=== PATIENT | female | born 1980 | race Caucasian/White ===

== ENCOUNTER 2017-01-18 12:38 | Emergency (ER) | payer BC ==
[2017-01-18 14:01] VITALS: BP 115/83
--- NOTE | 2017-01-18 14:43 | UC ---
Eye Complaint HPI - HPI Summary HPI Summary: 36 YO FEMALE WITH LEFT LOWER LID PAIN/SWELLING X DAYS LOOKS BETTER TODAY THAN YESTERDAY SOME MATTER ON LASHES THIS AM NO VISUAL C/O NO EYE PAIN - History of Current Complaint Chief Complaint: UCSkin Stated Complaint: LEFT EYE COMPLAINT Time Seen by Provider: 01/18/17 14:22 Hx Obtained From: Patient Hx Last Menstrual Period: 2 weeks ago Onset/Duration: Gradual Onset, Lasting Days Timing: Constant Severity Initially: Mild Severity Currently: Mild Pain Intensity: 4 Pain Scale Used: 0-10 Numeric Location of Injury: Eye Lid (lower) Character: Dull Aggravating Factor(s): Other - TOUCH Alleviating Factor(s): Other - WARM COMPRESSES Associated Signs And Symptoms: Positive: Drainage (Purulent) Related History: Other - HAS HAD STYS - Risk Factors Penetrating Injury Risk Factor: Negative Globe Rupture Risk Factors: Negative Acute Glaucoma Risk Factors: Negative - Allergies/Home Medications Allergies/Adverse Reactions: Allergies Allergy/AdvReac Type Severity Reaction Status Date / Time Penicillins Allergy Unknown Unknown Verified 01/18/17 14:01 Reaction Details PMH/Surg Hx/FS Hx/Imm Hx Previously Healthy: Yes - Surgical History Surgical History: Yes Surgery Procedure, Year, and Place: 2 C SECTIONS - Family History Known Family History: Positive: Hypertension - Social History Alcohol Use: Occasionally Substance Use Type: None Smoking Status (MU): Former Smoker When Did the Patient Quit Smoking/Using Tobacco: 2012 Review of Systems Constitutional: Negative Skin: Negative Eyes: Drainage ENT: Negative Respiratory: Negative Cardiovascular: Negative Gastrointestinal: Negative Genitourinary: Negative Motor: Negative Neurovascular: Negative Musculoskeletal: Negative Neurological: Negative Psychological: Negative All Other Systems Reviewed And Are Negative: Yes Physical Exam Triage Information Reviewed: Yes Vital Signs: Initial Vital Signs Temp 98.5 F 01/18/17 13:56 Pulse 77 01/18/17 13:56 Resp 20 01/18/17 13:56 BP 115/83 01/18/17 13:56 Eyes: Positive: Conjunctiva Clear, Other: - SEE IMAGE ENT: Positive: Hearing grossly normal. Negative: Nasal congestion, Nasal drainage, Trismus, Muffled/hoarse voice Neck: Positive: Supple, Nontender Respiratory: Positive: Lungs clear, Normal breath sounds, No respiratory distress Cardiovascular: Positive: RRR, No Murmur Musculoskeletal: Positive: ROM Intact, No Edema Neurological Exam: Normal Neurological: Positive: Alert Psychological Exam: Normal Skin Exam: Normal Eye Complaint Course/Dx - Differential Dx/Diagnosis Provider Diagnoses: LEFT DACROCYSTITIS Discharge - Discharge Plan Condition: Stable Disposition: HOME Prescriptions: Cephalexin CAP* [Keflex CAP*] 500 mg PO QID #28 cap Erythromycin OPHTH.OINT* [Ilotycin OPHTH.OINT*] 1 applic LEFT EYE QID #1 ophth.oint Referrals: Kristal Koenig MD [Primary Care Provider] - If Needed Additional Instructions: you have DACROCYSTITIS WARM COMPRESSES AT LEAST 4X DAY RECHECK IN 2-3 DAYS IF NOT BETTER Images Head: 1 - RED/SWOLLEN, NO FB INTEAR DUCT VISUALIZED
== END 2017-01-18 14:44 | disposition home or self-care (01) ==
LOC: UCCORT 12:38
DX: H04.322 Acute dacryocystitis of left lacrimal passage (principal); Z88.0 Allergy status to penicillin; Z87.891 Personal history of nicotine dependence
CPT/HCPCS: 99212; G0463

== ENCOUNTER 2017-03-16 15:14 | Emergency (ER) | payer BC ==
--- NOTE | 2017-03-16 16:43 | UC ---
Eye Complaint HPI - HPI Summary HPI Summary: 37 yo F with recurrence of left eye redness, swelling and drainage x 3 days. Was Rx'd here in January by Dr. Wyman with cephalexin and e'mycin eye ointment. Pt admits she did not finish the cephalexin (9 pills left). She restarted the meds last pm. - History of Current Complaint Chief Complaint: UCEye Stated Complaint: CLOGGED TEAR DUCT Time Seen by Provider: 03/16/17 16:42 Hx Obtained From: Patient Hx Last Menstrual Period: 02/25/17 Onset/Duration: Gradual Onset, Lasting Hours, Still Present Timing: Constant Severity Initially: Moderate Severity Currently: Moderate Pain Intensity: 6 Pain Scale Used: 0-10 Numeric Location of Injury: Eye Lid (lower) - medial Character: Foreign Body Sensation - like sand Aggravating Factor(s): Nothing Alleviating Factor(s): Nothing Associated Signs And Symptoms: Positive: Drainage (Clear), Swelling - lower lid , redness. Negative: Fever Related History: Similar Episode - "plugged tear duct" - Allergies/Home Medications Allergies/Adverse Reactions: Allergies Allergy/AdvReac Type Severity Reaction Status Date / Time Penicillins Allergy Unknown Unknown Verified 03/16/17 16:42 Reaction Details PMH/Surg Hx/FS Hx/Imm Hx Previously Healthy: Yes - Surgical History Surgical History: Yes Surgery Procedure, Year, and Place: 2 C SECTIONS - Family History Known Family History: Positive: Hypertension - Social History Occupation: Employed Full-time Lives: With Family Alcohol Use: Occasionally Substance Use Type: None Smoking Status (MU): Former Smoker When Did the Patient Quit Smoking/Using Tobacco: 2011 - Immunization History Most Recent Influenza Vaccination: none Review of Systems Constitutional: Negative Skin: Other - redness left lower lid Eyes: Drainage, Other - lower lid redness and swelling ENT: Negative Respiratory: Negative Cardiovascular: Negative Gastrointestinal: Negative Genitourinary: Negative Motor: Negative Neurovascular: Negative Musculoskeletal: Negative Neurological: Negative Psychological: Negative All Other Systems Reviewed And Are Negative: Yes Physical Exam Triage Information Reviewed: Yes Appearance: Well-Appearing, Well-Nourished, Pain Distress Vital Signs: Initial Vital Signs Temp 98.2 F 03/16/17 16:36 Pulse 67 03/16/17 16:36 Resp 16 03/16/17 16:36 BP 123/93 03/16/17 16:36 Pulse Ox 100 04/28/17 16:36 Vital Signs Reviewed: Yes Eyes: Positive: Conjunctiva Clear, Other: - red lower lid medial third ENT: Positive: Normal ENT inspection Neck: Positive: Supple, Nontender Respiratory: Positive: No respiratory distress Cardiovascular: Positive: RRR, Pulses Normal, Brisk Capillary Refill Musculoskeletal: Positive: Strength Intact, ROM Intact Neurological: Positive: Alert, Muscle Tone Normal Psychological Exam: Normal Skin: Positive: significant lesion(s) - left eye lower lid Eye Complaint Course/Dx - Course Course Of Treatment: advised pt to finish all meds and to use only the new ointment for a full 10 days. Advised to throw out all eye makeup. - Differential Dx/Diagnosis Differential Diagnosis/HQI/PQRI: Conjunctivitis, Periorbital Cellulitis, Other - stye Provider Diagnoses: stye left eye. elevated BP due to pain without dx HTN Discharge - Discharge Plan Condition: Stable Disposition: HOME Prescriptions: Cephalexin CAP* [Keflex 500 CAP*] 500 mg PO QID #28 cap Erythromycin OPHTH.OINT* [Ilotycin OPHTH.OINT*] 1 applic LEFT EYE QID #1 ophth.oint Patient Education Materials: St (ED) Referrals: Kristal Koenig MD [Primary Care Provider] - Inocencio Cui MD [Medical Doctor] - 3 Days (if not improvement )
[2017-03-16 16:58] VITALS: BP 123/93
== END 2017-03-16 17:02 | disposition home or self-care (01) ==
LOC: UCCORT 15:14
DX: H00.015 Hordeolum externum left lower eyelid (principal); R03.0 Elevated blood-pressure reading, without diagnosis of hypertension; Z88.0 Allergy status to penicillin; Z87.891 Personal history of nicotine dependence
CPT/HCPCS: 99212; G0463

== ENCOUNTER 2017-09-30 13:55 | Emergency (ER) | payer BC ==
[2017-09-30 15:59] VITALS: BP 127/85
--- NOTE | 2017-09-30 16:27 | UC ---
Throat Pain/Nasal Oliver HPI - HPI Summary HPI Summary: Pt c/o nasal congestion, sinus pressure,cough and generalized malaise X 3-4 days. Has history of sinus infections.Pt is traveling to [facility] in two days. - History of Current Complaint Chief Complaint: UCGeneralIllness Stated Complaint: RESPITORY Time Seen by Provider: 09/30/17 15:55 Hx Obtained From: Patient Hx Last Menstrual Period: 09/09/17 ?: No Onset/Duration: Gradual Onset, Lasting Days, Worse Since - onset Severity: Moderate Cough: Nonproductive Associated Signs & Symptoms: Positive: Sinus Discomfort - Epiglottits Risk Factors Epiglottis Risk Factors: Negative - Allergies/Home Medications Allergies/Adverse Reactions: Allergies Allergy/AdvReac Type Severity Reaction Status Date / Time Penicillins Allergy Unknown Unknown Verified 09/30/17 15:59 Reaction Details PMH/Surg Hx/FS Hx/Imm Hx Previously Healthy: Yes - Surgical History Surgical History: Yes Surgery Procedure, Year, and Place: 2 C SECTIONS - Family History Known Family History: Positive: Hypertension - Social History Occupation: Employed Full-time Lives: With Family Alcohol Use: Occasionally Substance Use Type: None Smoking Status (MU): Former Smoker Have You Smoked in the Last Year: No When Did the Patient Quit Smoking/Using Tobacco: 2011 - Immunization History Most Recent Influenza Vaccination: none Vaccination Up to Date: Yes Review of Systems Constitutional: Fatigue Skin: Negative Eyes: Negative ENT: Sinus Congestion, Sinus Pain/Tenderness Respiratory: Cough Cardiovascular: Negative Gastrointestinal: Negative Genitourinary: Negative Motor: Negative Neurovascular: Negative Musculoskeletal: Negative Neurological: Headache Psychological: Negative Is Patient Immunocompromised?: No All Other Systems Reviewed And Are Negative: Yes Physical Exam Triage Information Reviewed: Yes Appearance: Ill-Appearing Vital Signs: Initial Vital Signs Temp 98.3 F 09/30/17 15:54 Pulse 101 09/30/17 15:54 Resp 16 09/30/17 15:54 BP 127/85 09/30/17 15:54 Pulse Ox 97 09/30/17 15:54 Vital Signs Reviewed: Yes Eye Exam: Normal ENT Exam: Other ENT: Positive: Nasal congestion, TM bulging, Sinus tenderness Dental Exam: Normal Neck exam: Normal Respiratory Exam: Normal Cardiovascular Exam: Normal Musculoskeletal Exam: Normal Neurological Exam: Normal Psychological Exam: Normal Skin Exam: Normal Throat Pain/Nasal Course/Dx - Differential Dx/Diagnosis Differential Diagnosis/HQI/PQRI: Influenza, Sinusitis, URI Provider Diagnoses: sinusitis Discharge - Discharge Plan Condition: Stable Disposition: HOME Prescriptions: Azithromycin TAB* [Zithromax TAB (Z-PASCUAL) 250 mg #6 tabs] 2 tab PO .TODAY, THEN 1 DAILY #1 pascual predniSONE TAB* [Deltasone TAB*] 20 mg PO DAILY #4 tab Pseudoephedrine-Guaifenesin [Mucinex D 60-600 mg] 1 tab PO DAILY #7 tab Patient Education Materials: Sinusitis (ED) Referrals: Kristal Koenig MD [Primary Care Provider] - If Needed
== END 2017-09-30 16:45 | disposition home or self-care (01) ==
LOC: UCCORT 13:55
DX: J32.9 Chronic sinusitis, unspecified (principal); Z88.0 Allergy status to penicillin; Z87.891 Personal history of nicotine dependence
CPT/HCPCS: 99212; G0463

== ENCOUNTER 2018-02-07 09:56 | Emergency (ER) | payer BC ==
[2018-02-07 11:31] VITALS: BP 121/59
--- NOTE | 2018-02-07 11:34 | UC ---
Skin Complaint HPI - HPI Summary HPI Summary: 38 y/o female presents to the urgent care c/o rash around RT eye, nose and RT side of neck for the past month. Pt reports she was helping she daughter do a project w/ glitter and she scratched her eye and rash developed. She states Hx of urticaria. However rash is getting worse w/ time. She has applied vaseline and ABX ointment w/o improvement. Rash is the neck is getting bigger w/ itchiness. Pt states since yesterday she is waking up w/ yellowish crusting eye discharge that clears off during the day. Pt denies eye pain, photophobia, DAMON, fever, dizziness, SOB, chest pain, abdominal pain, N/V/D. - History of Current Complaint Chief Complaint: UCSkin Time Seen by Provider: 02/07/18 11:33 Stated Complaint: SKIN COMPLAINT Hx Obtained From: Patient Hx Last Menstrual Period: 09/09/17 ?: No Onset/Duration: Gradual Onset, Lasting Weeks - 4 weeks, Worse Since - 2 days Skin Exposure Onset/Duration: Weeks Ago - 4 weeks Timing: Constant Onset Severity: Moderate Current Severity: Moderate Pain Intensity: 2 Pain Scale Used: 0-10 Numeric Location: Other - LF eye orbit Character: Pruritus, Hives, Redness Aggravating Factor(s): Touch Alleviating Factor(s): OTC Creams/Salves, Cold Compresses Associated Signs & Symptoms: Positive: Rash Related History: Possible Reaction to: Environmental Exposure - Allergy/Home Medications Allergies/Adverse Reactions: Allergies Allergy/AdvReac Type Severity Reaction Status Date / Time Penicillins Allergy Unknown Verified 02/07/18 11:31 Reaction Details Home Medications: Home Medications Nutritional Supplements 1 dose PO DAILY 02/07/18 [History Confirmed 02/07/18] Review of Systems Constitutional: Negative Skin: Rash - left side of neck, around left eye Eyes: Drainage - yellowish crusting in left eye, Eye Redness - left eye ENT: Negative Respiratory: Negative Cardiovascular: Negative Gastrointestinal: Negative Genitourinary: Negative Motor: Negative Neurovascular: Negative Musculoskeletal: Negative Neurological: Negative Psychological: Negative Is Patient Immunocompromised?: No All Other Systems Reviewed And Are Negative: Yes PMH/Surg Hx/FS Hx/Imm Hx Previously Healthy: Yes - Pt denies FMHX - Surgical History Surgical History: Yes Surgery Procedure, Year, and Place: 2 C SECTIONS - Family History Known Family History: Positive: Hypertension, Diabetes - Social History Occupation: Employed Full-time Lives: With Family Alcohol Use: Occasionally Substance Use Type: None Smoking Status (MU): Former Smoker Have You Smoked in the Last Year: No When Did the Patient Quit Smoking/Using Tobacco: 2011 - Immunization History Most Recent Influenza Vaccination: none Vaccination Up to Date: Yes Physical Exam - Summary Physical Exam Summary: Vital Signs Reviewed: Yes General: Well appearing, well nourished adolescent male in no apparent pain distress Eyes: Positive: left Conjunctiva mildly injected, Visual acuity: WNL,Visual spencer: full to confrontation.mild periorbital soft tissue erythematous erution w/o swelling at the LT upper eyelid, mostly on the lower periorbital side. non tender to palpation. PERRLA, EOMI intact w/out limitation or complaint of pain. left eyelashes w/ mil yellowish crusting discharge.clear. RT eye WNL, No ciliary flush. No chemosis, No photophobia. Normal fundoscopic exam; no proptosis, exophthalmos, nystagmus. ENT: Positive: Normal ENT inspection, Hearing grossly normal, Pharynx normal, Nasal congestion, Nasal drainage - clear, TMs normal - B/L external ear canal clear , TM's WNL. Negative: Tonsillar swelling, Tonsillar exudate Neck: Positive: Supple, Nontender, No Lymphadenopathy, Respiratory: Positive: Chest nontender, Lungs clear, Normal breath sounds, No respiratory distress Cardiovascular: Positive: RRR, No Murmur, Pulses Normal, Brisk Capillary Refill Abdomen Description: Positive: Nontender, No Organomegaly, Soft. Negative: CVA Tenderness (R), CVA Tenderness (L) Bowel Sounds: Positive: Present Musculoskeletal: Positive: Strength Intact, ROM Intact, No Edema Neurological Exam: Normal Psychological Exam: Normal Skin Exam: left side of neck w/ erythemaous maculopapular eruption about 3.0x 4.0cm in size, w/ signs of excoriation, non tender to palpation. no drainage, no swelling observed. Triage Information Reviewed: Yes Vital Signs: Initial Vital Signs Temp 97.8 F 02/07/18 11:27 Pulse 58 02/07/18 11:27 Resp 14 02/07/18 11:27 BP 121/59 02/07/18 11:27 Pulse Ox 99 02/07/18 11:27 Course/Dx - Course Course Of Treatment: 38 y/o female presents to the urgent care c/o rash around RT eye, nose and RT side of neck for the past month. Pt reports she was helping she daughter do a project w/ glitter and she scratched her eye and rash developed. She states Hx of urticaria. However rash is getting worse w/ time. She has applied vaseline and ABX ointment w/o improvement. Rash is the neck is getting bigger w/ itchiness. Pt states since yesterday she is waking up w/ yellowish crusting eye discharge that clears off during the day. Pt denies eye pain, photophobia, DAMON, fever, dizziness, SOB, chest pain, abdominal pain, N/V/ D. Hx obtained.Pt's symptoms discussed w/ Dr aiken, he recommeded Prednisones PO, Aquaphor topical cream around eye and triamcinolone toical cream around neck. Medications sent to the pharmacy. Also Pt Rx Erythromycin oint for conjunctivitis. D/C instructions explained to Pt. Advised if not improvement to f/u w. Immigration Attorney Dr Kothari for further evaluation and Tx. Pt understood and agreed w/ plan of care. - Differential Diagnoses - Skin Complaint Differential Diagnoses: Allergic Reaction, Cellulitis, Eczema, Local Allergic Reaction, MRSA, Urticaria, Other - periorbital cellulitis - Diagnoses Provider Diagnoses: 1- Left eye contact dermatitis. 2- allergic rash around Neck. 3- Left acute bacterial conjunctivitis Discharge - Sign-Out/Discharge Documenting (check all that apply): Discharge - Discharge Plan Condition: Stable Disposition: HOME Prescriptions: Erythromycin OPTH OINT* [Erythromycin 0.5% OPTH OINT*] 1 applic RIGHT EYE TID # 1 ophth.oint predniSONE TAB* [Deltasone TAB*] 20 mg PO DAILY #11 tab Triamcinolone 0.5% CREAM(NF) [Triamcinolone 0.5% CREAM*] 1 applic TOPICAL TID # 1 tube Patient Education Materials: Contact Dermatitis (ED), Conjunctivitis (ED) Referrals: Kristal Koenig MD [Primary Care Provider] - 1 Week Miranda Kothari MD [Medical Doctor] - 1 Week Additional Instructions: 1-Please apply ophthalmic ointment as instructed and finish the full course of treatment to avoid recurrent infection. 2- Use Aquaphor topical cream BID around eye x 1 week. Take Prednisone PO to alleviate rash. 3-If you do not improve or if symptoms worsen please f/u with sweeper driver DR Kothari in 1 week for further evaluation and treatment - Billing Disposition and Condition Condition: STABLE Disposition: HOME
== END 2018-02-07 11:55 | disposition home or self-care (01) ==
LOC: UCCORT 09:56
DX: L25.9 Unspecified contact dermatitis, unspecified cause (principal); R21 Rash and other nonspecific skin eruption; H10.89 Other conjunctivitis; Z88.0 Allergy status to penicillin; Z87.891 Personal history of nicotine dependence
CPT/HCPCS: 99212; G0463